=== PATIENT | male | born 1970 | race Caucasian/White ===

== ENCOUNTER 2023-05-26 14:28 | Inpatient (IN) | payer OTHER ==
[2023-05-26 16:25] VITALS: BMI 22.6
[2023-05-26] MEDS ORDERED: MAGNESIUM HYDROX 2400MG/30ML ORAL SUSPENSION 30 ML CUP PO PRN (17:13)
[2023-05-26] MEDS ORDERED: DICYCLOMINE HCL 10 MG CAPSULE PO PRN (17:13)
[2023-05-26] MEDS ORDERED: POLYETHYLENE GLYCOL (HEALTHYLAX) 3350 17 GM PACKET PO PRN (17:13)
[2023-05-26] MEDS ORDERED: IBUPROFEN 400 MG TABLET (FP) PO PRN (17:13)
[2023-05-26] MEDS ORDERED: BENZOCAINE/MENTHOL (CHLORASEPTIC ) LOZENGE MM PRN (17:13)
[2023-05-26] MEDS ORDERED: NICOTINE POLACRILEX 2 MG GUM BUC PRN (17:13)
[2023-05-26] MEDS ORDERED: ACETAMINOPHEN 325 MG TABLET (FP) PO PRN (17:13)
[2023-05-26] MEDS ORDERED: BENZONATATE 200 MG CAPSULE PO PRN (17:13)
[2023-05-26] MEDS ORDERED: NALOXONE HCL (KLOXXADO) 8 MG SPRAY NS PRN (17:13)
[2023-05-26] MEDS ORDERED: BISMUTH SUBSALICYLATE 524 MG/30 ML PO PRN (17:13)
[2023-05-26] MEDS ORDERED: NALOXONE HCL 0.4 MG/ML VIAL IM PRN (17:13)
[2023-05-26] MEDS ORDERED: guaiFENesin 600 MG TABLET.ER (FP) PO PRN (17:13)
[2023-05-26] MEDS ORDERED: MAG HYDROX/AL HYDROX/SIMETH 30 ML UNIT-DOSE CUP PO PRN (17:13)
[2023-05-26] MEDS ORDERED: methaDONE HCL 10 MG TABLET (FOR DETOX USE ONLY) ONE (17:52)
[2023-05-26] MEDS: methaDONE HCL 10 MG TABLET (FOR DETOX USE ONLY) PO ONE (17:55)
[2023-05-26] MEDS: cloNIDine HCL 0.1 MG TABLET PO PRN (18:30)
[2023-05-26] MEDS: MELATONIN 5 MG TABLETS PO SCH (22:36)
[2023-05-26] MEDS: METHOCARBAMOL 500 MG TABLET PO PRN (22:36)
[2023-05-26] MEDS: THIAMINE HCL 100 MG TABLET (FP) PO SCH (22:36)
[2023-05-27 10:44] LABS: HEMATOCRIT 34.8 % (35.4-49); HEMOGLOBIN 11.9 GM/dL (11.7-16.9); MCH 28.7 pg (25.7-33.7); MCHC 34.3 g/dl (32.0-35.9); MEAN CELL VOLUME 83.5 fl (80-96); MEAN PLT VOLUME 8.7 fl (7.5-11.1); PLATELET COUNT 356 10^3/uL (134-434); RBC 4.16 M/mm3 (4.00-5.60); RDW 15.5 % (11.9-15.9); WHITE BLOOD COUNT 6.6 K/mm3 (4.0-10.0)
[2023-05-27 10:45] LABS: POTASSIUM 4.6 mmol/L (3.5-5.1)
[2023-05-27 10:52] LABS: ALBUMIN 3.2 g/dl (3.4-5.0); BLOOD UREA NITROGEN 13.9 mg/dL (7-18); CALCIUM 8.7 mg/dL (8.5-10.1)
[2023-05-27 10:55] LABS: CREATININE 0.8 mg/dL (0.55-1.3)
[2023-05-27 10:57] LABS: BILIRUBIN,TOTAL 0.2 mg/dL (0.2-1); TOT PROT 6.6 g/dl (6.4-8.2)
[2023-05-27] MEDS: PRENATAL VITAMINS W/ FOLIC ACID TABLET (FP) PO SCH (11:02)
[2023-05-27] MEDS: amLODIPine BESYLATE 10 MG TABLET (FP) PO ONE (11:02)
[2023-05-27] MEDS: diazePAM 5 MG TABLET PO PRN (11:02)
[2023-05-27] MEDS: NICOTINE 14 MG/24 HOURS TOPICAL PATCH TD SCH (11:02)
[2023-05-27 17:55] LABS: HIV INTERPRETATION NEGATIVE (NEGATIVE)
[2023-05-27] MEDS: MELATONIN 5 MG TABLETS PO SCH (22:17)
[2023-05-28] MEDS: methaDONE HCL 10 MG TABLET (FOR DETOX USE ONLY) PO ONE (10:06)
[2023-05-28] MEDS: amLODIPine BESYLATE 10 MG TABLET (FP) PO SCH (10:06)
[2023-05-29] MEDS: LISINOPRIL 5 MG TABLET PO SCH (11:21)
[2023-05-29] MEDS: CEPHALEXIN MONOHYDRATE 500 MG CAPSULE (UD) PO SCH (14:56)
[2023-05-29] MEDS: IBUPROFEN 600 MG TABLET (FP) PO PRN (15:13)
[2023-05-29] MEDS: cloNIDine HCL 0.1 MG TABLET PO PRN (22:33)
[2023-05-29] MEDS: MUPIROCIN 2% TOPICAL OINTMENT 22 GM TUBE TP SCH (22:52)
[2023-05-30] MEDS: methaDONE HCL 10 MG TABLET (FOR DETOX USE ONLY) PO ONE (09:59)
[2023-05-30] MEDS: LISINOPRIL 5 MG TABLET PO SCH (10:00)
[2023-05-30] MEDS: PERMETHRIN (NIX CREAM SCALP RINSE) 59 ML 1% BOTTLE TP ONE (10:45)
[2023-05-30] MEDS: PERMETHRIN 5% TOPICAL CREAM 60 GM TUBE TP ONE (10:45)
[2023-05-31 09:36] VITALS: RESP 18; TEMP 97.7
[2023-05-31 10:29] VITALS: BP 145/98; PULSE 86
== END 2023-05-31 10:35 | disposition home or self-care (01) | DRG 773 ==
LOC: YASAS 14:28 → Y6N 18:13
PROVIDERS: ADMIT Allergy & Immunology; ATTEND Surgery
PROC: HZ2ZZZZ Detoxification Services for Substance Abuse Treatment (ICD-10-PCS; principal; 2023-05-26)
DX: F11.23 Opioid dependence with withdrawal (principal); F17.210 Nicotine dependence, cigarettes, uncomplicated; F19.282 Other psychoactive substance dependence with psychoactive substance-induced sleep disorder; E78.2 Mixed hyperlipidemia; I10 Essential (primary) hypertension; B85.0 Pediculosis due to Pediculus humanus capitis; R76.11 Nonspecific reaction to tuberculin skin test without active tuberculosis; Z62.810 Personal history of physical and sexual abuse in childhood; Z91.410 Personal history of adult physical and sexual abuse; Z63.8 Other specified problems related to primary support group; Z63.0 Problems in relationship with spouse or partner; Z88.8 Allergy status to other drugs, medicaments and biological substances; Z20.7 Contact with and (suspected) exposure to pediculosis, acariasis and other infestations
CPT/HCPCS: 36415; 71046-TC-FY; 80053; 80305; 85027; 86780; 87389; 87635; 87811; 93005; 93010